=== PATIENT | male | born 1965 | race Caucasian/White ===

== ENCOUNTER 2017-04-14 08:36 | Inpatient (IN) | payer OTHER, BC ==
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
[2017-04-14 09:04] VITALS: BMI 29.2
[2017-04-14] MEDS ORDERED: ACETAMINOPHEN 325 MG TABLET (FP) PO PRN (09:21)
[2017-04-14] MEDS ORDERED: LOPERAMIDE HCL 2 MG CAPSULE PO PRN (09:21)
[2017-04-14] MEDS ORDERED: MAGNESIUM CITRATE 300 ML BOTTLE PO PRN (09:21)
[2017-04-14] MEDS ORDERED: P-EPHED 60MG/TRIPROLIDI 2.5MG TABLET PO PRN (09:21)
[2017-04-14] MEDS ORDERED: IBUPROFEN 400 MG TABLET (FP) PO PRN (09:21)
[2017-04-14] MEDS ORDERED: MENTHOL/PHENOL 1 EACH UD MM PRN (09:21)
[2017-04-14] MEDS ORDERED: hydrOXYzine PAMOATE 50 MG CAPSULE (FP) PO PRN (09:21)
[2017-04-14] MEDS ORDERED: MAGNESIUM HYDROX 2400MG/30ML ORAL SUSPENSION 30 ML CUP PO PRN (09:21)
[2017-04-14] MEDS ORDERED: MAG HYDROX/AL HYDROX/SIMETH 30 ML UNIT-DOSE CUP PO PRN (09:21)
[2017-04-14] MEDS ORDERED: guaiFENesin/D-METHORPHAN HB 10 ML UNIT-DOSE CUPS PO PRN (09:21)
[2017-04-14] MEDS ORDERED: chlordiazePOXIDE HCL 25 MG CAPSULE PO ONE (11:00)
[2017-04-14] MEDS: NICOTINE 21 MG/24 HOURS TOPICAL PATCH TD SCH (11:51)
[2017-04-14] MEDS: PRENATAL VITAMINS W/ FOLIC ACID TABLET (FP) PO SCH (11:52)
--- NOTE | 2017-04-14 14:27 | EKG ---
Test Reason : Blood Pressure : / mmHG Vent. Rate : 090 BPM Atrial Rate : 090 BPM P-R Int : 204 ms QRS Dur : 102 ms QT Int : 354 ms P-R-T Axes : 062 -41 060 degrees QTc Int : 433 ms NORMAL SINUS RHYTHM LEFT AXIS DEVIATION ABNORMAL ECG NO PREVIOUS ECGS AVAILABLE Confirmed by MD SUPRIYA, LUKE ([id number]) on 04/14/2017 2:27:06 PM Referred By: Sammy Gutierrez Confirmed By:LUKE EPPS MD
[2017-04-14 15:14] LABS: URINE APPEARANCE CLEAR; URINE BILIRUBIN NEGATIVE (NEGATIVE); URINE BLOOD 1+ (NEGATIVE); URINE COLOR YELLOW; URINE GLUCOSE (UA) NEGATIVE (NEGATIVE); URINE KETONE NEGATIVE (NEGATIVE); URINE LEUK ESTERASE NEGATIVE (NEGATIVE); URINE NITRITE NEGATIVE (NEGATIVE); URINE UROBILINOGEN NEGATIVE mg/dL (0.2-1.0)
[2017-04-14 15:19] LABS: URINE PROTEIN 1+ (NEGATIVE)
[2017-04-14 15:28] LABS: URINE MUCUS RARE
[2017-04-14] MEDS: chlordiazePOXIDE HCL 25 MG CAPSULE PO SCH ×2 (17:05→22:14)
[2017-04-14] MEDS: chlordiazePOXIDE HCL 25 MG CAPSULE PO PRN (19:42)
[2017-04-14] MEDS: THIAMINE HCL 100 MG TABLET (FP) PO SCH (22:14)
[2017-04-15] MEDS: chlordiazePOXIDE HCL 25 MG CAPSULE PO SCH ×4 (05:22→22:13)
[2017-04-15 10:16] LABS: HEMATOCRIT 42.6 % (35.4-49); HEMOGLOBIN 14.5 GM/dL (11.7-16.9); MCH 32.8 pg (25.7-33.7); MEAN CELL VOLUME 96.7 fl (80-96); MEAN PLT VOLUME 7.3 fl (7.5-11.1); PLATELET COUNT 119 K/MM3 (134-434); RBC 4.41 M/mm3 (4.00-5.60); RDW 15.5 % (11.9-15.9); WHITE BLOOD COUNT 5.2 K/mm3 (4.0-10.0)
[2017-04-15] MEDS: NICOTINE 21 MG/24 HOURS TOPICAL PATCH TD SCH (10:22)
[2017-04-15] MEDS: PRENATAL VITAMINS W/ FOLIC ACID TABLET (FP) PO SCH (10:22)
[2017-04-15] MEDS: NICOTINE POLACRILEX 2 MG GUM BUC PRN (10:25)
[2017-04-15 10:26] LABS: ALBUMIN 3.1 g/dl (3.4-5.0); ANION GAP 10 (8-16); BLOOD UREA NITROGEN 9 mg/dL (7-18); CALCIUM 8.4 mg/dL (8.5-10.1); CHLORIDE 102 mmol/L (98-107); CO2 29 mmol/L (21-32); CREATININE 0.6 mg/dL (0.7-1.3); GLUCOSE,RANDOM 91 mg/dL (74-106); POTASSIUM 3.8 mmol/L (3.5-5.1); SGOT/AST 43 U/L (15-37); SGPT/ALT 77 U/L (12-78); SODIUM 141 mmol/L (136-145)
[2017-04-15 10:28] LABS: ALK PHOS 89 U/L (45-117)
[2017-04-15] MEDS ORDERED: FLU VACCINE QUAD 60 MCG/0.5 ML (MDV 17-18) IM ONE (12:00)
[2017-04-15] MEDS ORDERED: PNEUMOC 13-VAL CONJ-DIP CRM/PF 0.5 ML DISP.SYRIN IM ONE (12:00)
[2017-04-15] MEDS: chlordiazePOXIDE HCL 25 MG CAPSULE PO PRN ×2 (13:12→22:13)
[2017-04-15] MEDS: THIAMINE HCL 100 MG TABLET (FP) PO SCH (22:12)
[2017-04-16] MEDS: chlordiazePOXIDE HCL 25 MG CAPSULE PO SCH ×2 (05:50→10:40)
[2017-04-16] MEDS: NICOTINE 21 MG/24 HOURS TOPICAL PATCH TD SCH (10:40)
[2017-04-16] MEDS: PRENATAL VITAMINS W/ FOLIC ACID TABLET (FP) PO SCH (10:40)
[2017-04-16] MEDS ORDERED: PNEUMOCOCCAL 23 VACCINE 0.5 ML VIAL IM ONE (12:00)
--- NOTE | 2017-04-16 13:36 | PN ---
[facility] CIWA - CIWA Score Nausea/Vomitin-No Nausea/No Vomiting Muscle Tremors: 3 Anxiety: 4-Mod. Anxious/Guarded Agitation: 2 Paroxysmal Sweats: 3 Orientation: 0-Oriented Tacttile Disturbances: 2-Mild Itch/Numbness/Burn Auditory Disturbances: 2-Mild Harshness/Frighten Visual Disturbances: 2-Mild Sensitivity Headache: 0-None Present CIWA-Ar Total Score: 18 BHS Progress Note (SOAP) Subjective: Tremors, Sweating, Anxious, Fatigue. Objective: PATIENT A & O X 3. NO ACUTE DISTRESS. 04/16/17 13:34 Vital Signs Temperature 95.3 F L 04/16/17 13:23 Pulse Rate 93 H 04/16/17 13:23 Respiratory Rate 20 04/16/17 13:23 Blood Pressure 148/88 04/16/17 13:23 O2 Sat by Pulse Oximetry (%) Laboratory Tests 04/14/17 04/15/17 04/15/17 15:01 07:00 07:00 WBC 5.2 D RBC 4.41 Hgb 14.5 Hct 42.6 MCV 96.7 H MCH 32.8 MCHC 34.0 RDW 15.5 D Plt Count 119 L D MPV 7.3 L Sodium 141 Potassium 3.8 Chloride 102 Carbon Dioxide 29 Anion Gap 10 BUN 9 Creatinine 0.6 L Creat Clearance w eGFR > 60 Random Glucose 91 Calcium 8.4 L Total Bilirubin 1.0 D AST 43 H D ALT 77 D Alkaline Phosphatase 89 Total Protein 6.0 L Albumin 3.1 L Urine Color Yellow Urine Appearance Clear Urine pH 5.0 Ur Specific [place] 1.018 Urine Protein 1+ H Urine Glucose (UA) Negative Urine Ketones Negative Urine Blood 1+ H Urine Nitrite Negative Urine Bilirubin Negative Urine Urobilinogen Negative Ur Leukocyte Esterase Negative Urine WBC (Auto) <1 Urine RBC (Auto) 1 Urine Mucus Rare RPR Titer 04/15/17 07:00 WBC RBC Hgb Hct MCV MCH MCHC RDW Plt Count MPV Sodium Potassium Chloride Carbon Dioxide Anion Gap BUN Creatinine Creat Clearance w eGFR Random Glucose Calcium Total Bilirubin AST ALT Alkaline Phosphatase Total Protein Albumin Urine Color Urine Appearance Urine pH Ur Specific [place] Urine Protein Urine Glucose (UA) Urine Ketones Urine Blood Urine Nitrite Urine Bilirubin Urine Urobilinogen Ur Leukocyte Esterase Urine WBC (Auto) Urine RBC (Auto) Urine Mucus RPR Titer Nonreactive LABS NOTED. Assessment: 04/16/17 13:35 WITHDRAWAL SYMPTOMS. Plan: CONTINUE DETOX.
[2017-04-16] MEDS: chlordiazePOXIDE HCL 25 MG CAPSULE PO PRN (15:29)
[2017-04-16] MEDS: chlordiazePOXIDE 5 MG CAPSULE PO SCH ×2 (17:12→22:18)
[2017-04-16] MEDS: NICOTINE POLACRILEX 2 MG GUM BUC PRN ×2 (17:34→22:19)
[2017-04-16] MEDS: THIAMINE HCL 100 MG TABLET (FP) PO SCH (22:18)
[2017-04-17] MEDS: chlordiazePOXIDE 5 MG CAPSULE PO SCH ×2 (05:52→10:23)
[2017-04-17] MEDS: NICOTINE POLACRILEX 2 MG GUM BUC PRN ×2 (05:54→18:35)
[2017-04-17] MEDS: PRENATAL VITAMINS W/ FOLIC ACID TABLET (FP) PO SCH (10:23)
[2017-04-17] MEDS: NICOTINE 21 MG/24 HOURS TOPICAL PATCH TD SCH (10:24)
--- NOTE | 2017-04-17 15:39 | PN ---
[facility] CIWA - CIWA Score Nausea/Vomitin-No Nausea/No Vomiting Muscle Tremors: 2 Anxiety: 3 Agitation: 2 Paroxysmal Sweats: 3 Orientation: 0-Oriented Tacttile Disturbances: 2-Mild Itch/Numbness/Burn Auditory Disturbances: 0-None Visual Disturbances: 1-Very Mild Sensitivity Headache: 0-None Present CIWA-Ar Total Score: 13 S Progress Note (SOAP) Subjective: Fatigue, Anxious, Sweating. Objective: PATIENT A & O X 3, OBSERVED AMBULATING ON UNIT. NO ACUTE DISTRESS. 04/17/17 15:37 Vital Signs Temperature 96.4 F L 04/17/17 13:21 Pulse Rate 83 04/17/17 13:21 Respiratory Rate 18 04/17/17 13:21 Blood Pressure 124/77 04/17/17 13:21 O2 Sat by Pulse Oximetry (%) Laboratory Tests 04/14/17 04/15/17 04/15/17 15:01 07:00 07:00 WBC 5.2 D RBC 4.41 Hgb 14.5 Hct 42.6 MCV 96.7 H MCH 32.8 MCHC 34.0 RDW 15.5 D Plt Count 119 L D MPV 7.3 L Sodium 141 Potassium 3.8 Chloride 102 Carbon Dioxide 29 Anion Gap 10 BUN 9 Creatinine 0.6 L Creat Clearance w eGFR > 60 Random Glucose 91 Calcium 8.4 L Total Bilirubin 1.0 D AST 43 H D ALT 77 D Alkaline Phosphatase 89 Total Protein 6.0 L Albumin 3.1 L Urine Color Yellow Urine Appearance Clear Urine pH 5.0 Ur Specific [place] 1.018 Urine Protein 1+ H Urine Glucose (UA) Negative Urine Ketones Negative Urine Blood 1+ H Urine Nitrite Negative Urine Bilirubin Negative Urine Urobilinogen Negative Ur Leukocyte Esterase Negative Urine WBC (Auto) <1 Urine RBC (Auto) 1 Urine Mucus Rare RPR Titer 04/15/17 07:00 WBC RBC Hgb Hct MCV MCH MCHC RDW Plt Count MPV Sodium Potassium Chloride Carbon Dioxide Anion Gap BUN Creatinine Creat Clearance w eGFR Random Glucose Calcium Total Bilirubin AST ALT Alkaline Phosphatase Total Protein Albumin Urine Color Urine Appearance Urine pH Ur Specific [place] Urine Protein Urine Glucose (UA) Urine Ketones Urine Blood Urine Nitrite Urine Bilirubin Urine Urobilinogen Ur Leukocyte Esterase Urine WBC (Auto) Urine RBC (Auto) Urine Mucus RPR Titer Nonreactive LABS NOTED. Assessment: 04/17/17 15:38 WITHDRAWAL SYMPTOMS. Plan: CONTINUE DETOX.
[2017-04-17] MEDS: chlordiazePOXIDE HCL 10 MG CAPSULE PO SCH ×2 (18:33→22:26)
[2017-04-17] MEDS: THIAMINE HCL 100 MG TABLET (FP) PO SCH (22:26)
[2017-04-18] MEDS: chlordiazePOXIDE HCL 10 MG CAPSULE PO SCH (05:42)
[2017-04-18 09:34] VITALS: BP 125/84; PULSE 83; TEMP 96
--- NOTE | 2017-04-18 16:46 | PN ---
BHS Progress Note (SOAP) Subjective: Patient denies any current Detox symptoms and reports that he is feeling well overall. Objective: PATIENT A & O X 3, OBSERVED AMBULATING ON UNIT. NO ACUTE DISTRESS. 04/18/17 16:44 Vital Signs Temperature 96.0 F L 04/18/17 09:33 Pulse Rate 83 04/18/17 09:33 Respiratory Rate 20 04/18/17 09:33 Blood Pressure 125/84 04/18/17 09:33 O2 Sat by Pulse Oximetry (%) Laboratory Tests 04/14/17 04/15/17 04/15/17 15:01 07:00 07:00 WBC 5.2 D RBC 4.41 Hgb 14.5 Hct 42.6 MCV 96.7 H MCH 32.8 MCHC 34.0 RDW 15.5 D Plt Count 119 L D MPV 7.3 L Sodium 141 Potassium 3.8 Chloride 102 Carbon Dioxide 29 Anion Gap 10 BUN 9 Creatinine 0.6 L Creat Clearance w eGFR > 60 Random Glucose 91 Calcium 8.4 L Total Bilirubin 1.0 D AST 43 H D ALT 77 D Alkaline Phosphatase 89 Total Protein 6.0 L Albumin 3.1 L Urine Color Yellow Urine Appearance Clear Urine pH 5.0 Ur Specific [place] 1.018 Urine Protein 1+ H Urine Glucose (UA) Negative Urine Ketones Negative Urine Blood 1+ H Urine Nitrite Negative Urine Bilirubin Negative Urine Urobilinogen Negative Ur Leukocyte Esterase Negative Urine WBC (Auto) <1 Urine RBC (Auto) 1 Urine Mucus Rare RPR Titer 04/15/17 07:00 WBC RBC Hgb Hct MCV MCH MCHC RDW Plt Count MPV Sodium Potassium Chloride Carbon Dioxide Anion Gap BUN Creatinine Creat Clearance w eGFR Random Glucose Calcium Total Bilirubin AST ALT Alkaline Phosphatase Total Protein Albumin Urine Color Urine Appearance Urine pH Ur Specific [place] Urine Protein Urine Glucose (UA) Urine Ketones Urine Blood Urine Nitrite Urine Bilirubin Urine Urobilinogen Ur Leukocyte Esterase Urine WBC (Auto) Urine RBC (Auto) Urine Mucus RPR Titer Nonreactive LABS NOTED. Assessment: 04/18/17 16:45 COMPLETION OF DETOX PROTOCOL. 04/18/17 16:46 Plan: PATIENT SCHEDULED FOR DISCHARGE FROM DETOX TODAY. PATIENT REPORTS THAT HE WILL GO HOME AND RETURN TO AA MEETINGS FOR AFTERCARE.
--- NOTE | 2017-04-18 16:47 | DS ---
[facility] Detox Discharge Summary Admission Date: 04/14/17 Discharge Date: 04/18/17 - History Present History: Alcohol Dependence Additional Comments: PATIENT GOING HOME AND REPORT THAT HE WILL RETURN TO PREVIOUS OUTPATIENT AA MEETINGS FOR AFTERCARE. PATIENT WAS DISCHARGED FROM DETOX UNIT IN STABLE MEDICAL CONDITION. Pertinent Past History: Nicotine Dependence, Deformity of Left hand. - Physical Exam Results Vital Signs: Vital Signs Temperature 96.0 F L 04/18/17 09:33 Pulse Rate 83 04/18/17 09:33 Respiratory Rate 20 04/18/17 09:33 Blood Pressure 125/84 04/18/17 09:33 O2 Sat by Pulse Oximetry (%) Pertinent Admission Physical Exam Findings: WITHDRAWAL SYMPTOMS. Laboratory Tests 04/14/17 04/15/17 04/15/17 15:01 07:00 07:00 WBC 5.2 D RBC 4.41 Hgb 14.5 Hct 42.6 MCV 96.7 H MCH 32.8 MCHC 34.0 RDW 15.5 D Plt Count 119 L D MPV 7.3 L Sodium 141 Potassium 3.8 Chloride 102 Carbon Dioxide 29 Anion Gap 10 BUN 9 Creatinine 0.6 L Creat Clearance w eGFR > 60 Random Glucose 91 Calcium 8.4 L Total Bilirubin 1.0 D AST 43 H D ALT 77 D Alkaline Phosphatase 89 Total Protein 6.0 L Albumin 3.1 L Urine Color Yellow Urine Appearance Clear Urine pH 5.0 Ur Specific [place] 1.018 Urine Protein 1+ H Urine Glucose (UA) Negative Urine Ketones Negative Urine Blood 1+ H Urine Nitrite Negative Urine Bilirubin Negative Urine Urobilinogen Negative Ur Leukocyte Esterase Negative Urine WBC (Auto) <1 Urine RBC (Auto) 1 Urine Mucus Rare RPR Titer 04/15/17 07:00 WBC RBC Hgb Hct MCV MCH MCHC RDW Plt Count MPV Sodium Potassium Chloride Carbon Dioxide Anion Gap BUN Creatinine Creat Clearance w eGFR Random Glucose Calcium Total Bilirubin AST ALT Alkaline Phosphatase Total Protein Albumin Urine Color Urine Appearance Urine pH Ur Specific [place] Urine Protein Urine Glucose (UA) Urine Ketones Urine Blood Urine Nitrite Urine Bilirubin Urine Urobilinogen Ur Leukocyte Esterase Urine WBC (Auto) Urine RBC (Auto) Urine Mucus RPR Titer Nonreactive LABS NOTED. - Treatment Hospital Course: Detox Protocol Followed, Detoxed Safely, Responded well, Discharged Condition Good Patient has Accepted a Rehab Referral to: PATIENT RETURNING TO PREVIOUS OUTPATIENT AA MEETINGS FOR AFTERCARE. - Medication Discharge Medications: Ambulatory Orders NK [No Known Home Medication] 03/21/13 - Diagnosis (1) Alcohol dependence with uncomplicated intoxication Status: Acute (2) Alcohol dependence with uncomplicated withdrawal Status: Acute (3) Deformity of left hand Status: Chronic (4) Nicotine dependence Status: Acute Qualifiers: Nicotine product type: cigarettes Substance use status: uncomplicated Qualified Code(s): F17.210 - Nicotine dependence, cigarettes, uncomplicated - AMA Did Patient Leave Against Medical Advice: No
== END 2017-04-18 09:39 | disposition home or self-care (01) | DRG 897 ==
LOC: YASAS 08:36 → Y3N 10:19
PROVIDERS: ADMIT Internal Medicine; ATTEND Internal Medicine
PROC: HZ2ZZZZ Detoxification Services for Substance Abuse Treatment (ICD-10-PCS; principal; 2017-04-14)
DX: F10.220 Alcohol dependence with intoxication, uncomplicated (principal); F10.230 Alcohol dependence with withdrawal, uncomplicated; F17.210 Nicotine dependence, cigarettes, uncomplicated
CPT/HCPCS: 36415; 80053; 81003; 81015; 85027; 86593; 90688; 90732; 93005; 93010; G0008; G0009

== ENCOUNTER 2017-10-03 13:29 | Inpatient (IN) | payer OTHER, BC ==
[2017-10-03 14:11] VITALS: BMI 27.1
[2017-10-03] MEDS ORDERED: MENTHOL/PHENOL 1 EACH UD MM PRN (17:21)
[2017-10-03] MEDS ORDERED: ACETAMINOPHEN 325 MG TABLET (FP) PO PRN (17:21)
[2017-10-03] MEDS ORDERED: LOPERAMIDE HCL 2 MG CAPSULE PO PRN (17:21)
[2017-10-03] MEDS ORDERED: IBUPROFEN 400 MG TABLET (FP) PO PRN (17:21)
[2017-10-03] MEDS ORDERED: NICOTINE POLACRILEX 4 MG GUM BC PRN (17:21)
[2017-10-03] MEDS ORDERED: MAGNESIUM CITRATE 300 ML BOTTLE PO PRN (17:21)
[2017-10-03] MEDS ORDERED: guaiFENesin/D-METHORPHAN HB 10 ML UNIT-DOSE CUPS PO PRN (17:21)
[2017-10-03] MEDS ORDERED: MAG HYDROX/AL HYDROX/SIMETH 30 ML UNIT-DOSE CUP PO PRN (17:21)
[2017-10-03] MEDS ORDERED: MAGNESIUM HYDROX 2400MG/30ML ORAL SUSPENSION 30 ML CUP PO PRN (17:21)
[2017-10-03] MEDS ORDERED: P-EPHED 60MG/TRIPROLIDI 2.5MG TABLET PO PRN (17:21)
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
[2017-10-03] MEDS ORDERED: chlordiazePOXIDE HCL 25 MG CAPSULE PO ONE (17:45)
[2017-10-03 21:30] LABS: URINE APPEARANCE CLEAR; URINE BILIRUBIN NEGATIVE (<2.0 mg/dL); URINE COLOR LTYELLOW; URINE GLUCOSE (UA) NEGATIVE (NEGATIVE); URINE KETONE NEGATIVE (NEGATIVE); URINE LEUK ESTERASE NEGATIVE (NEGATIVE); URINE NITRITE NEGATIVE (NEGATIVE); URINE UROBILINOGEN NEGATIVE mg/dL (0.2-1.0)
[2017-10-03 21:31] LABS: URINE PROTEIN 2+ (NEGATIVE)
[2017-10-03 21:33] LABS: URINE MUCUS RARE
[2017-10-03] MEDS: THIAMINE HCL 100 MG TABLET (FP) PO SCH (22:23)
[2017-10-03] MEDS: chlordiazePOXIDE HCL 25 MG CAPSULE PO SCH (22:23)
[2017-10-04] MEDS: hydrOXYzine PAMOATE 50 MG CAPSULE (FP) PO PRN ×2 (02:15→18:29)
[2017-10-04] MEDS: chlordiazePOXIDE HCL 25 MG CAPSULE PO PRN ×3 (02:15→20:40)
[2017-10-04] MEDS: chlordiazePOXIDE HCL 25 MG CAPSULE PO SCH ×4 (05:52→22:08)
[2017-10-04 10:03] LABS: HEMATOCRIT 45.2 % (35.4-49); HEMOGLOBIN 15.1 GM/dL (11.7-16.9); MCH 33.2 pg (25.7-33.7); MCHC 33.4 g/dl (32.0-35.9); MEAN CELL VOLUME 99.3 fl (80-96); MEAN PLT VOLUME 6.7 fl (7.5-11.1); PLATELET COUNT 92 K/MM3 (134-434); RBC 4.55 M/mm3 (4.00-5.60); RDW 17.1 % (11.9-15.9); WHITE BLOOD COUNT 3.8 K/mm3 (4.0-10.0)
[2017-10-04 10:09] LABS: ALBUMIN 3.4 g/dl (3.4-5.0); ANION GAP 11 MMOL/L (8-16); BLOOD UREA NITROGEN 7 mg/dL (7-18); CHLORIDE 103 mmol/L (98-107); CO2 29 mmol/L (21-32); GLUCOSE,RANDOM 75 mg/dL (74-106); POTASSIUM 3.6 mmol/L (3.5-5.1); SGOT/AST 93 U/L (15-37); SGPT/ALT 126 U/L (12-78); SODIUM 143 mmol/L (136-145)
[2017-10-04 10:11] LABS: ALK PHOS 78 U/L (45-117); BILIRUBIN,TOTAL 0.5 mg/dL (0.2-1.0); CREATININE 0.6 mg/dL (0.7-1.3); TOT PROT 6.3 g/dl (6.4-8.2)
[2017-10-04] MEDS: PRENATAL VITAMINS W/ FOLIC ACID TABLET (FP) PO SCH (10:16)
[2017-10-04] MEDS: NICOTINE 21 MG/24 HOURS TOPICAL PATCH TD SCH (10:16)
--- NOTE | 2017-10-04 12:10 | EKG ---
Test Reason : Blood Pressure : / mmHG Vent. Rate : 100 BPM Atrial Rate : 100 BPM P-R Int : 218 ms QRS Dur : 100 ms QT Int : 328 ms P-R-T Axes : 053 -46 063 degrees QTc Int : 423 ms SINUS RHYTHM WITH 1ST DEGREE A-V BLOCK PULMONARY DISEASE PATTERN LEFT ANTERIOR FASCICULAR BLOCK ABNORMAL ECG WHEN COMPARED WITH ECG OF 13-SEP-2017 00:51, NO SIGNIFICANT CHANGE WAS FOUND Confirmed by JU RAMIREZ MD ([id number]) on 10/04/2017 12:09:44 PM Referred By: Enedina Perla Confirmed By:JU RAMIREZ MD
--- NOTE | 2017-10-04 13:00 | PN ---
S CIWA - CIWA Score Nausea/Vomitin-Int. Nausea w/Dry Heave Muscle Tremors: 5 Anxiety: 3 Agitation: 2 Paroxysmal Sweats: 2 Orientation: 2-Disoriented Date<2 days Tacttile Disturbances: 2-Mild Itch/Numbness/Burn Auditory Disturbances: 0-None Visual Disturbances: 0-None Headache: 0-None Present CIWA-Ar Total Score: 20 BHS Progress Note (SOAP) Subjective: Tremors, Sweating, Dry Heaving. Objective: PATIENT A & O X 2 (UNCERTAIN ABOUT CURRENT DAY / DATE). PATIENT OBSERVED AMBULATING ON UNIT. NO ACUTE DISTRESS. 10/04/17 12:58 Vital Signs Temperature 97.0 F L 10/04/17 09:59 Pulse Rate 84 10/04/17 10:30 Respiratory Rate 20 10/04/17 10:30 Blood Pressure 136/79 10/04/17 09:59 O2 Sat by Pulse Oximetry (%) Laboratory Tests 10/03/17 10/04/17 10/04/17 20:45 07:00 07:00 WBC 3.8 L RBC 4.55 Hgb 15.1 Hct 45.2 MCV 99.3 H MCH 33.2 MCHC 33.4 RDW 17.1 H Plt Count 92 L MPV 6.7 L Sodium 143 Potassium 3.6 Chloride 103 Carbon Dioxide 29 Anion Gap 11 BUN 7 Creatinine 0.6 L Creat Clearance w eGFR > 60 Random Glucose 75 D Calcium 8.0 L Total Bilirubin 0.5 AST 93 H D ALT 126 H D Alkaline Phosphatase 78 D Total Protein 6.3 L Albumin 3.4 Urine Color [place] Urine Appearance Clear Urine pH 6.0 Ur Specific [place] 1.008 Urine Protein 2+ H Urine Glucose (UA) Negative Urine Ketones Negative Urine Blood 1+ H Urine Nitrite Negative Urine Bilirubin Negative Urine Urobilinogen Negative Ur Leukocyte Esterase Negative Urine WBC (Auto) <1 Urine RBC (Auto) 1 Urine Mucus Rare LABS NOTED. Assessment: 10/04/17 12:58 WITHDRAWAL SYMPTOMS. Plan: CONTINUE DETOX. INCREASE DAILY PO FLUID INTAKE. CLONIDINE, 0.1 MG PO BID FOR WITHDRAWAL SYMPTOMS.
[2017-10-04] MEDS ORDERED: cloNIDine HCL 0.1 MG TABLET PO ONE (13:45)
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
[2017-10-04] MEDS: MELATONIN 5 MG TABLETS PO PRN (22:08)
[2017-10-04] MEDS: THIAMINE HCL 100 MG TABLET (FP) PO SCH (22:08)
[2017-10-04] MEDS: cloNIDine HCL 0.1 MG TABLET PO SCH (22:08)
[2017-10-05] MEDS: chlordiazePOXIDE HCL 25 MG CAPSULE PO SCH ×3 (05:14→17:43)
[2017-10-05] MEDS: PRENATAL VITAMINS W/ FOLIC ACID TABLET (FP) PO SCH (10:16)
[2017-10-05] MEDS: cloNIDine HCL 0.1 MG TABLET PO SCH ×2 (10:16→22:14)
[2017-10-05] MEDS: NICOTINE 21 MG/24 HOURS TOPICAL PATCH TD SCH (10:16)
--- NOTE | 2017-10-05 19:13 | EKG ---
Test Reason : Blood Pressure : / mmHG Vent. Rate : 083 BPM Atrial Rate : 083 BPM P-R Int : 204 ms QRS Dur : 098 ms QT Int : 360 ms P-R-T Axes : 061 -59 070 degrees QTc Int : 423 ms NORMAL SINUS RHYTHM LEFT AXIS DEVIATION ABNORMAL ECG WHEN COMPARED WITH ECG OF 03-OCT-2017 17:34, NO SIGNIFICANT CHANGE WAS FOUND Confirmed by KALLIE SEQUEIRA MD ([id number]) on 10/05/2017 7:12:52 PM Referred By: Enedina Perla Confirmed By:KALLIE SEQUEIRA MD
--- NOTE | 2017-10-05 19:48 | PN ---
S CIWA - CIWA Score Nausea/Vomitin-No Nausea/No Vomiting Muscle Tremors: 4-Moderate,w/Arms Extend Anxiety: 2 Agitation: 1-Slight > Activity Paroxysmal Sweats: 3 Orientation: 0-Oriented Tacttile Disturbances: 2-Mild Itch/Numbness/Burn Auditory Disturbances: 0-None Visual Disturbances: 2-Mild Sensitivity Headache: 0-None Present CIWA-Ar Total Score: 14 BHS Progress Note (SOAP) Subjective: Tremors, Sweating, Body Aches. Patient reports that withdrawal symptoms are improving. Objective: PATIENT A & O X 3, OBSERVED AMBULATING ON UNIT. NO ACUTE DISTRESS. Vital Signs Temperature 98.4 F 10/05/17 18:01 Pulse Rate 70 10/05/17 18:01 Respiratory Rate 18 10/05/17 18:01 Blood Pressure 111/67 10/05/17 18:01 O2 Sat by Pulse Oximetry (%) Laboratory Tests 10/03/17 10/04/17 10/04/17 20:45 07:00 07:00 WBC 3.8 L RBC 4.55 Hgb 15.1 Hct 45.2 MCV 99.3 H MCH 33.2 MCHC 33.4 RDW 17.1 H Plt Count 92 L MPV 6.7 L Sodium 143 Potassium 3.6 Chloride 103 Carbon Dioxide 29 Anion Gap 11 BUN 7 Creatinine 0.6 L Creat Clearance w eGFR > 60 Random Glucose 75 D Calcium 8.0 L Total Bilirubin 0.5 AST 93 H D ALT 126 H D Alkaline Phosphatase 78 D Total Protein 6.3 L Albumin 3.4 Urine Color Ltyellow Urine Appearance Clear Urine pH 6.0 Ur Specific [place] 1.008 Urine Protein 2+ H Urine Glucose (UA) Negative Urine Ketones Negative Urine Blood 1+ H Urine Nitrite Negative Urine Bilirubin Negative Urine Urobilinogen Negative Ur Leukocyte Esterase Negative Urine WBC (Auto) <1 Urine RBC (Auto) 1 Urine Mucus Rare RPR Titer 10/04/17 07:00 WBC RBC Hgb Hct MCV MCH MCHC RDW Plt Count MPV Sodium Potassium Chloride Carbon Dioxide Anion Gap BUN Creatinine Creat Clearance w eGFR Random Glucose Calcium Total Bilirubin AST ALT Alkaline Phosphatase Total Protein Albumin Urine Color Urine Appearance Urine pH Ur Specific [place] Urine Protein Urine Glucose (UA) Urine Ketones Urine Blood Urine Nitrite Urine Bilirubin Urine Urobilinogen Ur Leukocyte Esterase Urine WBC (Auto) Urine RBC (Auto) Urine Mucus RPR Titer Nonreactive LABS NOTED. 10/05/17 19:45 Assessment: 10/05/17 19:45 WITHDRAWAL SYMPTOMS. Plan: CONTINUE DETOX. INCREASE DAILY PO FLUID INTAKE.
[2017-10-05] MEDS: chlordiazePOXIDE 5 MG CAPSULE PO SCH (22:14)
[2017-10-05] MEDS: THIAMINE HCL 100 MG TABLET (FP) PO SCH (22:14)
[2017-10-05] MEDS: MELATONIN 5 MG TABLETS PO PRN (22:14)
[2017-10-06] MEDS: chlordiazePOXIDE 5 MG CAPSULE PO SCH (06:11)
[2017-10-06 06:35] VITALS: PULSE 67
[2017-10-06 09:44] VITALS: BP 130/83; TEMP 96.6
[2017-10-06] MEDS: cloNIDine HCL 0.1 MG TABLET PO SCH (10:44)
[2017-10-06] MEDS: NICOTINE 21 MG/24 HOURS TOPICAL PATCH TD SCH (10:44)
[2017-10-06] MEDS: PRENATAL VITAMINS W/ FOLIC ACID TABLET (FP) PO SCH (10:44)
--- NOTE | 2017-10-06 12:24 | DS ---
[facility] Detox Discharge Summary Admission Date: 10/03/17 Discharge Date: 10/06/17 - History Present History: Alcohol Dependence Pertinent Past History: Denies - Physical Exam Results Vital Signs: Vital Signs Temperature 96.6 F L 10/06/17 09:43 Pulse Rate 67 10/06/17 09:43 Respiratory Rate 18 10/06/17 09:43 Blood Pressure 130/83 10/06/17 09:43 O2 Sat by Pulse Oximetry (%) Pertinent Admission Physical Exam Findings: Withdrawal symptoms Laboratory Tests 10/03/17 10/04/17 10/04/17 20:45 07:00 07:00 WBC 3.8 L RBC 4.55 Hgb 15.1 Hct 45.2 MCV 99.3 H MCH 33.2 MCHC 33.4 RDW 17.1 H Plt Count 92 L MPV 6.7 L Sodium 143 Potassium 3.6 Chloride 103 Carbon Dioxide 29 Anion Gap 11 BUN 7 Creatinine 0.6 L Creat Clearance w eGFR > 60 Random Glucose 75 D Calcium 8.0 L Total Bilirubin 0.5 AST 93 H D ALT 126 H D Alkaline Phosphatase 78 D Total Protein 6.3 L Albumin 3.4 Urine Color Ltyellow Urine Appearance Clear Urine pH 6.0 Ur Specific [place] 1.008 Urine Protein 2+ H Urine Glucose (UA) Negative Urine Ketones Negative Urine Blood 1+ H Urine Nitrite Negative Urine Bilirubin Negative Urine Urobilinogen Negative Ur Leukocyte Esterase Negative Urine WBC (Auto) <1 Urine RBC (Auto) 1 Urine Mucus Rare RPR Titer 10/04/17 07:00 WBC RBC Hgb Hct MCV MCH MCHC RDW Plt Count MPV Sodium Potassium Chloride Carbon Dioxide Anion Gap BUN Creatinine Creat Clearance w eGFR Random Glucose Calcium Total Bilirubin AST ALT Alkaline Phosphatase Total Protein Albumin Urine Color Urine Appearance Urine pH Ur Specific [place] Urine Protein Urine Glucose (UA) Urine Ketones Urine Blood Urine Nitrite Urine Bilirubin Urine Urobilinogen Ur Leukocyte Esterase Urine WBC (Auto) Urine RBC (Auto) Urine Mucus RPR Titer Nonreactive Labs reviewed: abnormal UA (encouraged PO water hydration, follow up with your PCP within 3 days) - Treatment Hospital Course: Detox Protocol Followed, Detoxed Safely, Responded well, Discharged Condition Good - Medication Discharge Medications: Ambulatory Orders NK [No Known Home Medication] 03/21/13 - Diagnosis (1) Abnormal finding on urinalysis Status: Acute (2) Alcohol dependence with uncomplicated withdrawal Status: Acute (3) Nicotine dependence Status: Chronic Qualifiers: Nicotine product type: cigarettes Substance use status: uncomplicated Qualified Code(s): F17.210 - Nicotine dependence, cigarettes, uncomplicated - AMA Did Patient Leave Against Medical Advice: Yes (Proceed to ER stat if feels sick/ withdrawal sxs, F/U with PCP within 3 days)
[2017-10-06] MEDS ORDERED: chlordiazePOXIDE HCL 10 MG CAPSULE PO SCH (23:00)
== END 2017-10-06 10:58 | disposition left against medical advice (07) | DRG 770 ==
LOC: YASAS 13:29 → Y3N 15:07
PROVIDERS: ADMIT Surgery; ATTEND Surgery
PROC: HZ2ZZZZ Detoxification Services for Substance Abuse Treatment (ICD-10-PCS; principal; 2017-10-03)
DX: F10.230 Alcohol dependence with withdrawal, uncomplicated (principal); F17.210 Nicotine dependence, cigarettes, uncomplicated; F32.9 Major depressive disorder, single episode, unspecified; R82.90 Unspecified abnormal findings in urine
CPT/HCPCS: 36415; 80053; 81003; 81015; 85027; 86593; 93005; 93010; J0735